=== PATIENT | male | born 1945 | race Caucasian/White ===

== ENCOUNTER 2017-06-12 05:20 | Inpatient (IN) | payer OTHER ==
[2017-06-04 08:50] LABS: HEMATOCRIT 35.7 % (42.0-52.0); MCH 31.1 pg (26.0-34.0); MCHC 33.7 g/dL (28.0-37.0); MCV 92.3 fL (80.0-100.0); RBC 3.87 mil/uL (4.50-6.00); RDW 14.8 % (10.5-14.5); WBC 5.5 thou/uL (4.0-11.0)
[2017-06-04 08:58] LABS: ALBUMIN 3.7 g/dL (3.4-5.0); CALCIUM 8.4 mg/dL (8.5-10.1); CREATININE 1.3 mg/dL (0.7-1.3); POTASSIUM 4.2 mmol/L (3.5-5.1)
[2017-06-04 09:04] LABS: PROTIME 10.2 Seconds (9.3-11.4)
[2017-06-04 09:06] LABS: URINE BILIRUBIN NEGATIVE (Negative); URINE BLOOD NEGATIVE (Negative); URINE COLOR YELLOW; URINE GLUCOSE-RANDOM* NEGATIVE (Negative); URINE KETONES NEGATIVE (Negative); URINE LEUKOCYTES-REFLEX NEGATIVE (Negative); URINE PROTEIN (DIPSTICK) NEGATIVE (Negative); URINE SPECIFIC GRAVITY 1.025 (1.003-1.035); URINE UROBILINOGEN 0.2 E.U./dl (0.2-1.0)
[2017-06-05 04:13] LABS: GLYCOHEMOGLOBIN (HGB A1C) 5.9 % (4.8-5.6)
[~2017-06-12] VITALS: Ht 162.6 cm; Wt 103.9 kg
[2017-06-12] VITALS (10 sets, daily range): BP systolic 103–140; BP diastolic 51–71
--- NOTE | ~2017-06-12 | O ---
[facility] [place] [address] OPERATIVE REPORT Name: DUNGJANICE Florencia FLORES Room #: 407-P ADM IN M.R.#: [id number] Admission: 06/12/17 Attend Phys: Prudencio Fernandez MD Discharge: Date of : 43 Report #: [id number] THIS REPORT FOR: //name// CC: Prudencio Ramires MD DATE OF SERVICE: 06/12/2017 PREOPERATIVE DIAGNOSES: 1. Left knee degenerative joint disease, severe. 2. Obesity, body mass index 39.48. POSTOPERATIVE DIAGNOSES: 1. Left knee degenerative joint disease, severe. 2. Obesity, body mass index 39.48. OPERATIVE PROCEDURE: Left total knee arthroplasty. SURGEON: Prudencio Fernandez MD ONCOLOGY PHARMACIST: Dacia Garcia PA-C INDICATIONS FOR ONCOLOGY PHARMACIST: During the course of operation extensive manipulation, retraction and limb positioning was required. This was especially important due to the patient's size, which took extra time. ANESTHESIA: General. INDICATIONS: See hospital H and P. IMPLANTS UTILIZED: Used a DePuy PFC knee system, cruciate retaining femoral component size 4 left, size 4 tibial tray with a 10 mm spacer and a 38 mm oval dome patella. DESCRIPTION OF PROCEDURE: After adequate general anesthesia had been obtained, the patient's left lower extremity was prepped and draped in the usual meticulous sterile fashion. The limb was exsanguinated with gravity and tourniquet inflated to 350 torr. An anterior midline incision was made, subQ divided sharply. Hemostasis obtained with electrocautery. Medial parapatellar incision was made. The infrapatellar fat pad was removed. Medial release performed. The drill was used to drill the distal femur. This hole was enlarged, irrigated, suctioned, and the intramedullary guide placed the full length of the femur. The distal femoral cutting guide was pinned at appropriate height and the distal femoral cut was made. Measuring device determined the size 4 was the appropriate size for this patient. We marked the distal femur, [address] [address] OPERATIVE REPORT Name: JANICE RAZO JR Room #: 407-P ADM IN M.R.#: [id number] Admission: 06/12/17 Attend Phys: Prudencio Fernandez MD Discharge: Date of : 43 Report #: [id number] impacted the cutting guide into position and the anterior, posterior and chamfer cuts were made. Rongeur was used to remove additional osteophytes. At this time, the ACL was transected, tibia translated anteriorly and menisci were excised. Drill was used to drill the central portion of the tibia. This hole was enlarged, irrigated, suctioned, and the intramedullary guide placed the full length of tibia. Proximal tibial cutting guide placed at appropriate height. Proximal tibia cut was made. The 4 tray gave us the best coverage on the tibia. We put all the trial components in position with a 10 spacer, we had the best flexion, extension and gap. Patella was measured, cutting guide clamped into place, patellar cut was made. The 38 template gave us the best coverage. Pedicles were drilled, trial component put in position, it tracked normally. At this time, the knee was taken through several cycles of flexion, extension, and the tibial tray rotation was marked. Distal femur was drilled. Trial components were removed. The knee was irrigated with both pulse lavage and antibiotic irrigation. The cement was vacuum mixed and when it reached the appropriate consistency, the knee was thoroughly dried, the tibial tray was cemented into place. Excess cement was removed. The polyethylene was impacted in place, the femur impacted into place and the knee was taken out to 30 degrees of flexion, uniform compression placed across components. Patellar button was then cemented into place and again excess cement was removed. Irrigation was placed in the wound and allowed to rest in the wound until the cement had fully cured. Drains were placed superolaterally both deep and superficial. The knee was then irrigated and dried thoroughly. The retinacular layer closed with combination of interrupted [id number] #1 Vicryl and running #1 Tevdek. SubQ closed with 2-0 Monocryl in multiple layers due to the patient's size. Skin closed with wade. Sterile compressive dressing applied. Tourniquet then deflated. <ELECTRONICALLY SIGNED> By: Prudencio Fernandez MD 06/12/17 1411 [id number] [id number] Prudencio Fernandez MD /nt
[~2017-06-12 05:20] MED LIST: ACTOS 45 MG45 M1 PO; ASPIR-TRIN325 MG PO; B12INJ IM; CADUET 10 MG-41 EACH PO; CADUET 5 MG-201 EACH PO; COLACE 100 MG100 MG PO; COQ-10100 MG PO; DIOVAN320 MG PO; GLIPIZIDE5 MG PO; HYDROCHLOROTH12.5 M1 PO; IRON325 PO; LANTUS SUBQ; NORCO 5-325 TA1 EACH PO; PERCOCET 10-321 EACH PO; PREDNISONE 20 M20 MG PO; SENNA PO; TRICOR48 MG PO; VICTOZA0.6 MG/0.1 SUBQ; VITAMIN D250000 UNIT PO; VITAMINC500 PO; XARELTO10 MG PO
[2017-06-13] VITALS (7 sets, daily range): BP systolic 109–177; BP diastolic 50–60
[2017-06-13 06:17] LABS: HEMATOCRIT 32.5 % (42.0-52.0); HEMOGLOBIN 10.8 gm/dL (14.0-18.0); MCH 30.8 pg (26.0-34.0); MCHC 33.2 g/dL (28.0-37.0); MCV 92.8 fL (80.0-100.0); RBC 3.51 mil/uL (4.50-6.00); RDW 14.7 % (10.5-14.5); WBC 9.6 thou/uL (4.0-11.0)
[2017-06-14 04:00] VITALS: BP 153/48
[2017-06-14 06:18] LABS: HEMATOCRIT 31.1 % (42.0-52.0); HEMOGLOBIN 10.5 gm/dL (14.0-18.0); MCH 31.2 pg (26.0-34.0); MCHC 33.8 g/dL (28.0-37.0); MCV 92.2 fL (80.0-100.0); RBC 3.37 mil/uL (4.50-6.00); RDW 14.8 % (10.5-14.5); WBC 8.5 thou/uL (4.0-11.0)
[2017-06-14] MEDS ORDERED: NORCO 7.5-3251 EACH PO (06:39)
[2017-06-14] MEDS ORDERED: XARELTO10 MG PO (06:39)
[2017-06-14 08:00] VITALS: BP 107/51
[2017-06-14 08:05] VITALS: BP 107/51
[2017-06-14 20:07] VITALS: BP 128/59
[2017-06-15 04:12] LABS: HEMATOCRIT 33.2 % (42.0-52.0); HEMOGLOBIN 11.1 gm/dL (14.0-18.0); MCH 30.8 pg (26.0-34.0); MCHC 33.3 g/dL (28.0-37.0); MCV 92.4 fL (80.0-100.0); RBC 3.59 mil/uL (4.50-6.00); WBC 7.1 thou/uL (4.0-11.0)
[2017-06-15 05:25] VITALS: BP 121/51
[2017-06-15 07:45] VITALS: BP 105/49
[2017-06-15 08:25] VITALS: BP 105/49
[2017-06-15 10:11] VITALS: BP 118/59
[2017-06-15 10:12] VITALS: BP 118/59
== END 2017-06-15 13:08 | disposition home health service (06) | DRG 470 ==
LOC: 4N 05:20 → TBA 05:20 → PRE 06:09 → 4N 13:20
PROVIDERS: Orthopaedic Surgery
PROC: 0SRD0J9 Replacement of Left Knee Joint with Synthetic Substitute, Cemented, Open Approach (ICD-10-PCS; principal; 2017-06-12)
DX: M17.12 Unilateral primary osteoarthritis, left knee (principal); G45.9 Transient cerebral ischemic attack, unspecified; E66.01 Morbid (severe) obesity due to excess calories; E11.9 Type 2 diabetes mellitus without complications; I10 Essential (primary) hypertension; Z90.49 Acquired absence of other specified parts of digestive tract; Z68.39 Body mass index [BMI] 39.0-39.9, adult
CPT/HCPCS: 10790; 50010; 50101; 50415; 50954; 51130; 51225; 51320; 51412; 51771; 52001; 53000; 53078; 53364; 56525; 56527; 62110; 62900; 64042; 64043; 70005

== ENCOUNTER → 2019-11-19 | Outpatient (CLI) | payer OTHER ==
[~2019-11-19] MED LIST changes: +NORCO 7.5-3251 EACH PO
== END ==
LOC: SJCVCIMAG 07:28
DX: I25.10 Atherosclerotic heart disease of native coronary artery without angina pectoris (principal); E11.9 Type 2 diabetes mellitus without complications; I10 Essential (primary) hypertension; E78.5 Hyperlipidemia, unspecified